=== PATIENT | male | born 1950 | race Caucasian/White ===

== ENCOUNTER 2020-03-03 22:15 | Emergency (ER) | payer OTHER ==
[~2020-03-03] VITALS: Ht 180.3 cm; Wt 111.1 kg
[~2020-03-03 22:15] MED LIST: ACTOS15 MG; ADULT LOW DOSE81 MG; ADULT LOW DOSE81 MG PO; ALLOPURINOL 10100 M1 PO; ALLOPURINOL 30300 M1 PO; ATIVAN1 MG; BENICAR40 MG; BYETTA PEN 11 PENINJ SC; CARAFATE 11 GM/10 M1 PO; CARISOPRODOL 3350 MG PO; CIPROFLOXACIN500 M1 PO; DIABETA 5MG TABL5 MG GT; DYAZIDE; EXFORGE; GLUCOPHAGE1000 MG PO; LEXAPRO20 MG PO; MIRAPEX0.5 MG PO; NAPROSYN375 MG PO; NEXIUM40 MG PO; PHENERGAN 25 MG25 M1 PO; SIMVASTATIN40 MG PO; VICODIN; VICTOZA0.6 MG/0.1
[2020-03-03] MEDS ORDERED: TRULICITY0.75 MG/0. SUBQ (22:42)
[2020-03-03 22:59] LABS: ABSOLUTE BASOPHILS 0.1 thou/uL (0.0-0.2); ABSOLUTE EOSINOPHILS 0.6 thou/uL (0.0-0.7); ABSOLUTE LYMPHOCYTES 3.3 thou/uL (0.8-5.3); ABSOLUTE MONOCYTES 0.8 thou/uL (0.0-1.2); ABSOLUTE NEUTROPHILS 6.1 thou/uL (1.6-8.1); EOSINOPHILS 5.8 %; HEMATOCRIT 37.7 % (42.0-52.0); HEMOGLOBIN 12.3 gm/dL (14.0-18.0); LYMPHOCYTES 30.1 %; MCH 32.1 pg (26.0-34.0); MCHC 32.5 g/dL (28.0-37.0); MCV 98.8 fL (80.0-100.0); MONOCYTES 7.4 %; MPV 8.9 fl. (7.2-11.1); NUCLEATED RBCS 0 /100WBC; PLATELET COUNT* 277 thou/uL (150-400); POLYS 55.7 %; RBC 3.82 mil/uL (4.50-6.00); RDW-CV 14.1 % (10.5-14.5)
[2020-03-03 23:08] LABS: CALCIUM 8.9 mg/dL (8.5-10.1); CREATININE 1.3 mg/dL (0.6-1.3); POTASSIUM 4.5 mmol/L (3.5-5.1)
[2020-03-03] MEDS ORDERED: DOXYCYCLINE 10100 M2 PO (23:21)
[2020-03-03] MEDS ORDERED: NORCO 5-325 TA1 EAC2 PO (23:34)
[2020-03-03 23:50] VITALS: BP 138/79
== END 2020-03-03 23:51 | disposition home or self-care (01) ==
LOC: M.ERS 22:15
PROVIDERS: Emergency Medicine Emergency Medical Services
DX: L01.00 Impetigo, unspecified (principal)

== ENCOUNTER 2021-04-28 14:43 | Emergency (ER) | payer OTHER ==
[~2021-04-28] VITALS: Ht 180.3 cm; Wt 108.9 kg
[~2021-04-28 14:43] MED LIST changes: +DOXYCYCLINE 10100 M2 PO; +NORCO 5-325 TA1 EAC2 PO; +TRULICITY0.75 MG/0. SUBQ
[2021-04-28 20:35] VITALS: BP 153/71
== END 2021-04-28 20:35 | disposition left against medical advice (07) ==
LOC: M.ERS 14:43
DX: L53.9 Erythematous condition, unspecified (principal); M79.89 Other specified soft tissue disorders; Z53.21 Procedure and treatment not carried out due to patient leaving prior to being seen by health care provider